=== PATIENT | male | born 1955 | race Hispanic/Latino ===

== ENCOUNTER 2024-02-07 11:34 | Emergency (ER) | payer SELFPAY ==
[2024-02-07 13:19] LABS: Bilirubin Neg (Negative); Blood, Urine 150 (Negative); Clarity Clear (Clear); Glucose, Urine (Dipstick) Normal (Negative); Ketone, Urine Negative (Negative); Leukocyte Negative (Negative); Nitrite Negative (Negative); Protein, Urine (Dipstick) Negative (Neg-Trace); Urobilinogen Normal mg/dL (Less than 2)
[2024-02-07 14:31] LABS: RBC/HPF 21-50 HPF (0-3)
[2024-02-07 14:33] LABS: CAUTI Indications for Culture Dysuria,urgency,freq; Squamous Epithelial None Seen HPF (0-3); WBC/HPF 0-3 HPF (0-3)
[2024-02-07 14:34] LABS: Bacteria/HPF Rare-Few HPF (None Seen); Urine Culture Reflex No No
== END 2024-02-07 14:40 | disposition home or self-care (01) ==
LOC: CSHERS 11:34
DX: R33.9 Retention of urine, unspecified (principal); I10 Essential (primary) hypertension
CPT/HCPCS: 51702; 81001; 99283